=== PATIENT | male | born 1940 | race Two or more races ===

== ENCOUNTER 2024-04-18 10:11 | Outpatient (AMB) | payer OTHER, SELFPAY ==
--- NOTE | 2024-04-18 10:27 | A.OFFPC_ITS ---
Vital Signs 04/18/24 10:29 Height 5 ft 6 in Weight 104 lb BMI 16.8 BP 92/42 L Blood Pressure Location Rt brachial Position Sitting Pulse 68 Pulse Source Pulse Oximeter Pulse Oximetry (%) 99 Oxygen Delivery Method Room Air Intake Visit Reasons: Establish Care Intake Note: Patient is here to establish care with [facility] family [facility]- accompanied by his daughter and she reports nothing new. Patient's daughter reports he has records from [place] and no one has gotten back to daughter. Patients daughter reports patient does not take medications and has not been to see a doctor since before covid. Bead Trimmer Required: No Accompanied by: Daughter Allergies No Known Allergies Allergy (Verified 04/18/24 10:37) Tobacco use date assessed: 04/18/24 Fall risk assessment: No Falls in past year Last assessed Fall Risk: 04/18/24 Dental Screening Dental Screen Date: 04/18/24 Did you have a dental visit in the last 12 months?: Yes Did you have a dental problem in the last 6 months where you did not have access to dental care?: No Was dental information given to patient?: Patient has dentist HPI HPI Comments History of Present Illness Details The patient is an 83 year old male with a past medical history of memory loss/dementia presenting to [facility]. Previously seen at [facility]. Has not seen pcp since COVID epidemic. Accompanied by daughter Elda Patient reports weight loss, decreased appetite. Denies dysphagia, abdominal pain, abnormal stools. Willing to do labs but declines any referrals ROS see HPI PHYSICAL EXAM: GENERAL: Thin EYES: EOMI. Anicteric. HENT: Moist mucous membranes. No scleral icterus. Cervical LN are palpable LUNGS: Clear to auscultation bilaterally. CARDIOVASCULAR: Regular rate and rhythm. No murmur. No JVD. ABDOMEN: Soft, non-tender +bs EXTREMITIES: No edema. Non-tender. SKIN: No rashes or lesions. Warm. NEUROLOGIC: No focal neurological deficits. CN II-XII grossly intact PSYCHIATRIC: Cooperative. Appropriate mood and affect [facility] Medical History Dementia Surgical History History of appendectomy Social History Household Members: Family Housing: House Are you a primary patient care nursing assistant to a significant other at home: No Do you presently have visiting nurse or other home services: No Alcohol intake: current Alcohol intake frequency: a few times a week Alcohol type: hard liquor Patient Tobacco Use Status: Current everyday Tobacco user Tobacco use type: Cigarette Cigarette Packs Per Day: 2 Years Smoked: 60 e-Cigarette/Vaping Use: Never Used service: No Current occupational status: retired Cognitive needs: No Hearing needs: No Vision needs: No Questionnaire PHQ-9 Over the last 2 weeks, how often have you been bothered by any of the following problems? 1. Little interest or pleasure in doing things: nearly every day 2. Feeling down, depressed, or hopeless: not at all 3. Trouble falling or staying asleep, or sleeping too much: nearly every day 4. Feeling tired or having little energy: not at all 5. Poor appetite or overeating: nearly every day 6. Feeling bad about yourself - or that you are a failure or have let yourself or your family down: not at all 7. Trouble concentrating on things, such as reading the newspaper or watching television: not at all 8. Moving or speaking so slowly that other people could have noticed. Or the opposite - being so fidgety or restless that you have been moving around a lot more than usual: not at all 9. Thoughts that you would be better off or of hurting yourself in some way: not at all Total score: 9 Depression Screening Interpretation: Positive Depression Screening Follow-up: Declines treatment Depression Screening Done: Yes 82475 - PHQ-9 Billing: Yes Source: Developed by Drs. Silvano Alfonso, Shabnam Lam, Russell Woods and colleagues, with an educational charlie from [employer]. Thrive Questionnaire Date Thrive assessed: 04/18/24 I am a: Parent/Caregiver What is your living situation today?: I have a steady place to live Within the past 12 months, did the food you bought not last and you didn't have the money to get more?: Never true Within the past 12 months, did you worry whether your food would run out before you got money to buy more?: Never true Do you have trouble paying for medicines?: No Do you have trouble getting transportation to medical appointments?: No Do you have trouble paying your heating and electricity bill?: No Do you have trouble taking care of your child, family member or friend?: No Do you have trouble with day-to-day activities such as bathing, preparing meals, shopping, managing finances, etc.?: Yes Are you currently unemployed and looking for a job?: No Are you interested in more education?: No Please select the resources that you would like help with: None Currently or been in a relationship where the following occur: No concerns reported THRIVE Score: 0 AUDIT C Alcohol Use Questionnaire (AUDIT-C) 1. How often do you have a drink containing alcohol?: 2-3 times a week 2. How many drinks containing alcohol do you have on a typical day when you are drinking?: 1 or 2 3. How often do you have six or more drinks on one occasion?: Never Total Score: 3 VIVEK-7 AMB Questionnaire VIVEK-7 Date VIVEK - 7 assessed: 04/18/24 Source: Developed by Drs. Silvano Alfonso, Shabnam Lam, Russell Woods and colleagues, with an educational charlie from [employer]. VIVEK-7 Assessment Billing VIVEK-7 Assessment Tool: pt declined-do not bill Physical exam (Primary Care) Vital Signs: Last Vital Signs Pulse 68 04/18/24 10:29 BP 92/42 L 04/18/24 10:29 Pulse Ox 99 04/18/24 10:29 Oxygen Delivery Method Room Air 04/18/24 10:29 BMI result Body Mass Index 16.8 Tobacco/Smoking Status: Tobacco use Status Tobacco use date assessed 04/18/24 04/18/24 10:37 Patient Tobacco Use Status Current everyday Tobacco 04/18/24 10:45 Tobacco use type Cigarette 04/18/24 10:45 e-Cigarette/Vaping Use Never Used 04/18/24 10:45 PHQ-9: PHQ-9 Score PHQ-9: Total score 9 04/20/24 13:06 Depression Screening Interpretation: Positive Depression Screening Follow-up: Declines treatment Thrive Assessment: Date of Thrive Assessment Date Thrive assessed 04/18/24 04/18/24 10:45 Currently or been in a relationship where the following occur: No concerns reported Assessment and Plan Assessment & Plan (1) Dementia: Code(s): F03.90 - Unspecified dementia, unspecified severity, without behavioral disturbance, psychotic disturbance, mood disturbance, and anxiety Qualifiers: Dementia behavioral or psychological symptom: without behavioral, psychotic, or mood disturbance or anxiety Dementia severity: mild Dementia type: unspecified type Qualified Code(s): F03.A0 - Unspecified dementia, mild, without behavioral disturbance, psychotic disturbance, mood disturbance, and anxiety (2) Encounter to establish care: Code(s): Z76.89 - Persons encountering health services in other specified circumstances Plan: 83 y/o male presenting to establish care. past medical, surgical, social and family history reviewed (3) Abnormal weight loss: Code(s): R63.4 - Abnormal weight loss Plan: Will do labs but defers any further work up (4) Annual wellness visit: Code(s): Z00.00 - Encounter for general adult medical examination without abnormal findings Orders: Orders Prostate Specific Antigen 04/18/24 F03.90 - Unspecified dementia, unspecified severity, without behavioral disturbance, psychotic disturbance, mood disturbance, and anxiety, Z76.89 - Persons encountering health services in other specified circumstances TSH reflex Free T4 04/18/24 F03.90 - Unspecified dementia, unspecified severity, without behavioral disturbance, psychotic disturbance, mood disturbance, and anxiety, R63.4 - Abnormal weight loss, Z76.89 - Persons encountering health services in other specified circumstances Vitamin B12 and Folate 04/18/24 F03.90 - Unspecified dementia, unspecified severity, without behavioral disturbance, psychotic disturbance, mood disturbance, and anxiety, R63.4 - Abnormal weight loss, Z76.89 - Persons encountering health services in other specified circumstances Complete Blood Count Auto Diff 04/18/24 F03.90 - Unspecified dementia, unspecified severity, without behavioral disturbance, psychotic disturbance, mood disturbance, and anxiety, Z76.89 - Persons encountering health services in other specified circumstances Comprehensive Met. Panel 04/18/24 F03.90 - Unspecified dementia, unspecified severity, without behavioral disturbance, psychotic disturbance, mood disturbance, and anxiety, Z76.89 - Persons encountering health services in other specified circumstances Lipid Panel 04/18/24 F03.90 - Unspecified dementia, unspecified severity, without behavioral disturbance, psychotic disturbance, mood disturbance, and anxiety, Z76.89 - Persons encountering health services in other specified circumstances Coding Level of Care Code New Pt Level 4 (27385) Diagnoses Mild dementia without behavioral disturbance, psychotic disturbance, mood disturbance, or anxiety, unspecified dementia type F03.A0 Dementia behavioral or psychological symptom: without behavioral, psychotic, or mood disturbance or anxiety Dementia severity: mild Dementia type: unspecified type Encounter to establish care Z76.89 Abnormal weight loss R63.4 Annual wellness visit Z00.00
[2024-04-18 10:29] VITALS: BP 92/42; PULSE 68; O2SAT 99; BMI 16.8
== END 2024-04-18 11:12 | disposition home or self-care (01) ==
LOC: HO.HMGFM 10:11
PROVIDERS: PCP Internal Medicine; Visit Provider Internal Medicine
DX: F03.A0 Unspecified dementia, mild, without behavioral disturbance, psychotic disturbance, mood disturbance, and anxiety (principal); Z76.89 Persons encountering health services in other specified circumstances; R63.4 Abnormal weight loss; Z00.00 Encounter for general adult medical examination without abnormal findings
CPT/HCPCS: 99204

== ENCOUNTER 2024-04-18 11:15 | Outpatient (REF) | payer OTHER, SELFPAY ==
[2024-04-18 14:12] LABS: MANUAL DIFF FLAG NO
[2024-04-18 14:14] LABS: Basophils Absolute Auto 0.1 X10*3/uL (0.0-0.2); Basophils Percent Auto 1.1 % (0-2); Eosinophils Absolute Auto 0.2 X10*3/uL (0.0-0.4); Eosinophils Percent Auto 3.3 % (0-4); Hematocrit 43.8 % (42.0-52.0); Hemoglobin 14.8 g/dl (14.0-18.0); Imm Gran Abs Auto 0.03 X10*3/uL (0.00-0.03); Imm Gran Pct Auto 0.5 % (0.0-0.4); Lymphocytes Absolute Auto 1.7 X10*3/uL (1.2-4.9); Lymphocytes Percent Auto 27.8 % (20-40); Mean Corpuscular HGB Conc 33.8 g/dl (31.0-36.0); Mean Corpuscular Volume 94.8 fL (80.0-98.0); Mean Platelet Volume 10.1 fL (9.4-12.4); Monocytes Absolute Auto 0.6 X10*3/uL (0.1-1.2); Neutrophils Absolute Auto 3.6 x10*3/uL (2.0-8.3); Neutrophils Percent Auto 58.3 % (45-73); Platelet Count 224 X10*3/uL (160-400); Red Blood Count 4.62 X10*6/uL (4.60-5.80); Red Cell Distribution Width 12.9 % (11.0-16.0); White Blood Count 6.1 X10*3/uL (4.8-10.8)
[2024-04-18 14:49] LABS: Alanine Aminotransferase 10 U/L (0-40); Albumin Level 3.8 g/dL (3.5-5.0); Alkaline Phosphatase 112 U/L (39-117); Anion Gap 12 (12-20); Aspartate Amino Transferase 18 U/L (5-37); Bilirubin Total 0.6 mg/dL (0.0-1.0); Blood Urea Nitrogen 11 mg/dL (9-16); Calcium 9.3 mg/dL (8.4-10.2); Carbon Dioxide 27 mmol/L (22-29); Chloride 107 mmol/L (96-108); Cholesterol 172 mg/dL (<200); Estimated Glomerular Filt Rate 53; Glucose Random 93 mg/dL (60-115); HDL Cholesterol 41 mg/dL (>40); LDL Cholesterol Calculated 109 mg/dL (<100); Potassium 3.8 mmol/L (3.3-5.1); Sodium 142 mmol/L (135-145); Total Protein 6.5 g/dL (6.5-8.0); Triglycerides 112 mg/dL (<150)
[2024-04-18 14:54] LABS: TSH reflex Free T4 1.42 uIU/mL (0.32-4.0)
[2024-04-18 15:04] LABS: Folate 7.1 ng/mL (> or = 4.0); Prostate Specific Antigen 2.36 ng/mL (<0.05-4.0); Vitamin B12 478 pg/mL (200-900)
== END 2024-04-18 11:16 | disposition home or self-care (01) ==
LOC: HO.WFDLDS 11:15
PROVIDERS: Visit Provider Internal Medicine
DX: Z76.89 Persons encountering health services in other specified circumstances (principal); F03.90 Unspecified dementia, unspecified severity, without behavioral disturbance, psychotic disturbance, mood disturbance, and anxiety; R63.4 Abnormal weight loss; Z12.5 Encounter for screening for malignant neoplasm of prostate
CPT/HCPCS: 36415; 80053; 80061; 82607; 82746; 84153; 84443; 85025

== ENCOUNTER 2024-10-24 09:39 | Outpatient (AMB) | payer OTHER, MEDICAID, SELFPAY ==
--- NOTE | 2024-10-24 09:47 | A.OFFPC_ITS ---
Vital Signs 10/24/24 09:57 BMI Reason not done Palliative Care Patient BP 86/45 L Blood Pressure Location Rt brachial Position Sitting Pulse 100 Pulse Source Pulse Oximeter Pulse Oximetry (%) 86 L Oxygen Delivery Method Room Air Intake Visit Reasons: [facility] Intake Note: Hospital follow up Test Boring Crew Chief Required: No Allergies No Known Allergies Allergy (Verified 10/24/24 09:56) Tobacco use date assessed: 04/18/24 Fall risk assessment: No Falls in past year Last assessed Fall Risk: 10/24/24 Dental Screening Dental Screen Date: 04/18/24 HPI HPI Comments History of Present Illness Details The patient is an 84 year old male with past medical history of dementia, FTT presenting to [facility] He was hospitalized from Oct 05-Oct 09 2024. Presented to [facility] with generalized weakness and failure to thrive. On the day of presentation was too weakn to get out of bed. elevated wbc at 20, lactate 3.0, BUN 50. CXR emphysema. Hgb 7.6Bladder scan with 600cc urine. CT abd/pelvis constipation. Urology was consuled-mcclendon catheter placed with 700cc output. Managed for UTI with improvement in overall symptoms. Mcclendon cath kept in place with plan for follow up outpatient. Patient discharged home on hospice. Advised to continue cefpodoxime on discharge. Continues hospice care at home. Have not picked up megace. Still running constipated on 2 times daily lactulose. Upcoming urology appt Thursday. Have noticed some cloudiness and sediment in the urine for the past 48 hours. ROS see HPI PHYSICAL EXAM: GENERAL: Alert and oriented x 3. NAD EYES: EOMI. Anicteric. HENT: Moist mucous membranes. No scleral icterus. No cervical lymphadenopathy. LUNGS: Clear to auscultation bilaterally. CARDIOVASCULAR: Regular rate and rhythm. No murmur. No JVD. ABDOMEN: Soft, non-tender +bs EXTREMITIES: No edema. Non-tender. SKIN: No rashes or lesions. Warm. NEUROLOGIC: No focal neurological deficits. CN II-XII grossly intact PSYCHIATRIC: Cooperative. Appropriate mood and affect [facility] Medical History Dementia Surgical History History of appendectomy Social History Household Members: Family Housing: House Are you a primary respiratory care practitioner to a significant other at home: No Do you presently have visiting nurse or other home services: No 75 years or older and lives alone: No Alcohol intake: current Alcohol intake frequency: a few times a week Alcohol type: hard liquor Patient Tobacco Use Status: Former Tobacco user Tobacco use type: Cigarette Cigarette Packs Per Day: 2 Years Smoked: 60 e-Cigarette/Vaping Use: Never Used service: No Current occupational status: retired Cognitive needs: No Hearing needs: No Vision needs: No Questionnaire Thrive Questionnaire Date Thrive assessed: 04/18/24 VIVEK-7 AMB Questionnaire VIVEK-7 Date VIVEK - 7 assessed: 04/18/24 Source: Developed by Drs. Silvano Alfonso, Shabnam Lam, Russell Woods and colleagues, with an educational charlie from [employer]. Physical exam (Primary Care) Vital Signs: Last Vital Signs Pulse 100 10/24/24 09:57 BP 86/45 L 10/24/24 09:57 Pulse Ox 86 L 10/24/24 09:57 Oxygen Delivery Method Room Air 10/24/24 09:57 Tobacco/Smoking Status: Tobacco use Status Tobacco use date assessed 04/18/24 10/24/24 09:48 Patient Tobacco Use Status Former Tobacco user 10/24/24 10:05 Tobacco use type Cigarette 10/24/24 09:48 e-Cigarette/Vaping Use Never Used 10/24/24 09:48 Thrive Assessment: Date of Thrive Assessment Date Thrive assessed 04/18/24 10/24/24 09:48 Coding Level of Care Code Est Pt Level 5 (91511) Diagnoses Failure to thrive in adult R62.7 Mild dementia without behavioral disturbance, psychotic disturbance, mood disturbance, or anxiety, unspecified dementia type F03.A0 Dementia type: unspecified type Dementia severity: mild Dementia behavioral or psychological symptom: without behavioral, psychotic, or mood disturbance or anxiety Time Spent (min) 50 Assessment & Plan Assessment & Plan (1) Failure to thrive in adult: Code(s): R62.7 - Adult failure to thrive Category: Medical Plan: continue hospice care. hospital stay reviewed. medications reconciled. Increase lactulose. (2) Dementia: Code(s): F03.90 - Unspecified dementia, unspecified severity, without behavioral disturbance, psychotic disturbance, mood disturbance, and anxiety Category: Medical Qualifiers: Dementia type: unspecified type Dementia severity: mild Dementia behavioral or psychological symptom: without behavioral, psychotic, or mood disturbance or anxiety Qualified Code(s): F03.A0 - Unspecified dementia, mild, without behavioral disturbance, psychotic disturbance, mood disturbance, and anxiety Plan: stable Medications: New cefpodoxime 100 mg (10 mL) PO BID 140 mL 0RF 7 days ferrous sulfate may pay out of pocket 150 mg (2.5 mL) PO DAILY 500 mL 3RF multivitamin with minerals may pay out of pocket 10 mL PO DAILY 237 mL 3RF R62.7 - Adult failure to thrive
[2024-10-24 09:57] VITALS: BP 86/45; PULSE 100; O2SAT 86
== END 2024-10-24 10:40 | disposition home or self-care (01) ==
LOC: HO.HMCFM 09:39
PROVIDERS: PCP Internal Medicine; Visit Provider Internal Medicine
DX: R62.7 Adult failure to thrive (principal); F03.A0 Unspecified dementia, mild, without behavioral disturbance, psychotic disturbance, mood disturbance, and anxiety